=== PATIENT | female | born 1975 | race Caucasian/White ===

== ENCOUNTER 2016-09-07 20:02 | Emergency (ER) | payer SELFPAY ==
[2016-09-07] MEDS ORDERED: Sodium Chloride 0.9% 10 ML Syringe FLUSH PRN (21:00)
[2016-09-07 23:19] VITALS: BP 138/75
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
[2016-09-09 23:54] LABS: UNSATURATED IRON BIND CAPACITY 481 ug/dL (112-347)
== END 2016-09-07 23:47 | disposition home or self-care (01) ==
LOC: FB.ED 20:02
DX: F10.129 Alcohol abuse with intoxication, unspecified (principal); R41.0 Disorientation, unspecified; E66.9 Obesity, unspecified; D64.9 Anemia, unspecified
CPT/HCPCS: 36415; 80053; 80305; 81025; 83540; 83550; 84443; 85025; 93005; 99284; G0480; J7050; 99283